=== PATIENT | female | born 1995 | race Caucasian/White ===

== ENCOUNTER 2019-12-26 21:54 | Emergency (ER) | payer BC, MEDICAID ==
[~2019-12-26] VITALS: Ht 162.6 cm; Wt 68.0 kg
[2019-12-26] MEDS ORDERED: [UNRECOGNIZED DRUG - REMARK] (22:07)
--- NOTE | 2019-12-26 22:10 | NUR ---
Pt brought to ER by mom. AO x 4. Ambulated to ER in steady gait. Main complaint is fever that started at 12 noon today. Denies chest pain, shortness of breath or any muscle aches. Verbalized that she has not been in close contact with anyone who is sick in general, nor with Covid 19. No GI/ complaints. Side rails up x 1. Bed locked in position.
--- NOTE | 2019-12-26 22:15 | NUR ---
Dr. Marie at bedside for MSE.
[2019-12-26 22:44] LABS: *BILIRUBIN,URIN NEGATIVE (NEGATIVE); *BLOOD, URINE 3+ (NEGATIVE); *CLARITY,URINE SLIGHTLY CLOUDY (CLEAR); *COLOR,URINE YELLOW (YELLOW); *KETONES,URINE NEGATIVE (NEGATIVE); *UROBILINOGEN,URINE 0.2 E.U./dl (NORMAL); LEUKOCYTE ESTERASE ,URINE NEGATIVE (NEGATIVE); NITRITE, URINE NEGATIVE (NEGATIVE); UGLUCOSE NEGATIVE (NEGATIVE)
[2019-12-26 22:51] LABS: *URINE HCG, QUAL NEGATIVE (NEGATIVE); BACTERIA,URINE FEW /HPF (NONE SEEN); SQUAMOUS EPITHELIAL CELL,UR MODERATE /HPF (NONE SEEN)
--- NOTE | 2019-12-26 23:18 | NUR ---
Patient discharged to home in stable condition. Written and verbal after care instructions given. Emphasized importance of taking OTC fever process stripper medications as explained by MD. RN also suggested that she isolate herself at home until her symptoms resolve. Stressed follow up or return to ER for worsening s/s. Patient verbalizes understanding of instructions. Ambulated out of ER in steady gait.
[2019-12-26 23:21] VITALS: BP 122/68
== END 2019-12-26 23:27 | disposition home or self-care (01) ==
LOC: ER 21:57
DX: B34.9 Viral infection, unspecified (principal)
CPT/HCPCS: 84703; A4663